=== PATIENT | female | born 1970 | race Caucasian/White ===

== ENCOUNTER → 2025-05-19 | Outpatient (CLI) | payer BC ==
--- NOTE | 2025-05-23 12:50 | HMCIMG ---
Right BREAST ULTRASOUND: CLINICAL HISTORY: Follow-up for mammogram from 12/02/2024 and ultrasound from 12/02/2024. Patient also has a family history of maternal and paternal breast cancer. Finding: Real-time examination of the [right] breast demonstrates heterogeneous echotexture throughout the breast without evidence of focal solid or cystic mass. There is a benign-appearing stable right axillary lymph node measuring 0.5 x 0.3 x 0.5 cm. Right axillary has 2 small benign-appearing lymph node measuring 1.2 x 0.6 x 1.3 cm the second lymph node measuring 0.8 x 0.4 x 0.7 cm. IMPRESSION: Right breast intramammary lymph node appears to be stable and unchanged from prior study No mass or cyst identified I would recommend annual bilateral breast mammogram with ultrasound CATEGORY 2: BENIGN FINDINGS Recommend monthly self breast exam as well as annual clinical examination. A negative x-ray should not delay biopsy if a dominant or clinically suspicious mass is present, since 8-10% of cancers are not identified by mammography. Dense breasts particularly, may obscure an underlying neoplasm. Some of these may be detected clinically and therefore, clinical examination is an essential part of breast evaluation.
== END | disposition home or self-care (01) ==
LOC: RAH 13:16
PROVIDERS: ATTEND Student in an Organized Health Care Education/Training Program
DX: D48.61 Neoplasm of uncertain behavior of right breast (principal); Z80.3 Family history of malignant neoplasm of breast
CPT/HCPCS: 76641